=== PATIENT | female | born 1960 | race Caucasian/White ===

== ENCOUNTER → 2016-06-30 | Outpatient (CLI) | payer OTHER ==
[2016-06-30 14:12] LABS: Basophils # (A) 0.1 k/uL (0-0.2); Basophils % (A) 1 %; CH 30.8; CHCM 31.8; Eosinophils # (A) 0.5 k/uL (0-0.7); Eosinophils % (A) 6 %; HCT 43.1 % (34.0-46.0); HDW 2.25; HGB 13.7 gm/dL (11.4-16.0); Luc # (Auto) 0.18; Luc % (Auto) 2; Lymphocytes # (A) 2.5 k/uL (1.0-4.8); Lymphocytes % (A) 33 %; MCHC 31.8 g/dL (31.0-37.0); MCV 97.4 fL (80.0-100.0); Mean Platelet Volume 7.7; Monocytes # (A) 0.4 k/uL (0-1.0); Monocytes % (A) 6 %; Neutrophils % (A) 52 %; RBC 4.42 m/uL (3.80-5.40); RDW 12.8 % (11.5-15.5); WBC 7.7 k/uL (3.8-10.6); WBC (Perox) 7.89
== END | disposition home or self-care (01) ==
LOC: LABPAT 10:34
PROVIDERS: ATTEND Obstetrics & Gynecology
DX: Z01.812 Encounter for preprocedural laboratory examination (principal)
CPT/HCPCS: 85025

== ENCOUNTER 2016-07-05 09:29 | Day surgery (SDC) | payer OTHER ==
[2016-06-30 11:36] VITALS: BMI 28.3
[~2016-07-05 09:29] MED LIST: DEXAMETHASONE SOD PHOSPHATE 10 MG/ML 1 ML VIAL IV ONE; HYDROmorphone 1 MG/ML 1 ML SYRINGE IVP PRN; LACTATED RINGERS 1,000 ML IV SCH; MIDAZOLAM 2 MG/2 ML VIAL IV PRN; ONDANSETRON 4 MG/2 ML VIAL IVP ONE; SCOPOLAMINE 1.5MG/72HR PATCH TRANSDERM ONE; ceFAZolin 2 GM in SODIUM CHLORIDE 0.9% 100 ML IVPB ONE
[2016-07-05 09:55] VITALS: RESP 16
[2016-07-05] MEDS ORDERED: LIDOCAINE 1% 20 ML VIAL (10MG/ML) FOR IV START INTRADERMA ONE (10:09)
[2016-07-05] MEDS ORDERED: PROPOFOL 10 MG/ML 20 ML VIAL IV ONE (10:57)
[2016-07-05] MEDS ORDERED: KETOROLAC 30 MG/ML 1 ML VIAL ONE (10:57)
[2016-07-05] MEDS ORDERED: MIDAZOLAM 2 MG/2 ML VIAL ONE (10:57)
[2016-07-05] MEDS ORDERED: fentaNYL (PF) 50 MCG/ML 2 ML AMP ONE (10:57)
[2016-07-05] MEDS ORDERED: LIDOCAINE 1% INJ 10MG/ML (20 ML MDV) ONE (10:57)
[2016-07-05] MEDS ORDERED: VASOPRESSIN 20 UNIT/ML 1 ML VIAL IM ONE (11:12)
[2016-07-05 11:38] VITALS: TEMP 98.4
--- NOTE | 2016-07-05 11:44 | P.OP ---
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 Postoperative Diagnosis: Pathology pending Procedure(s) Performed: Cold knife conization, endocervical curettage. Anesthesia: GRECIAA Surgeon: Katie Galeana [employer] C[employer] Technician #1: Stated None Estimated Blood Loss (ml): 5 IV fluids (ml): 400 Urine output (ml): 200 Pathology: other (Cervical conization specimen, and endocervical curettings.) Condition: stable Disposition: PACU Description of Procedure: Patient is brought to the operating suite where a general anesthetic is administered without difficulty. She is placed in the dorsal lithotomy position. The appropriate timeout is performed to assure proper patient and procedural identification. Antibiotics are given. Urine hCG is not performed secondary to postmenopausal status greater than 2 years. The cervix, vagina, perineum and periurethral areas are all prepped and draped in usual sterile fashion. Right angle retractor is used in the anterior lip of the cervix is grasped with a double-tooth tenaculum. Bladder is drained for approximately 200 mL of clear yellow urine. Stay sutures are placed in the cervix, 0 Vicryl suture, on the patient's left from 2 to 4:00, tied and held with a hemostat. Then on the patient's right from 8 to 10:00, tied and held laterally with a hemostat. The cervix is injected with 10 mL total of a dilute Pitressin solution to aid in hemostasis. A scalpel is used to incise the cervical body in a circumferential fashion. This is taken down to a depth of approximately 1.5-2 cm. The specimen is sent to pathology for evaluation. An endocervical curettage was then performed, and specimen is sent under separate cover. At this time, electrocautery with a ball attachment is used to thoroughly cauterize the base of the specimen up into the endocervical canal and along the entire surface of the conization. The stay stitches are removed. Monsel solution is placed, hemostasis is excellent. All sponge, needle and instrument counts are correct. Patient is brought back to the recovery room in very good condition with stable vital signs including blood pressure 130/69, pulse 63, 99% O2 saturation. She is given Toradol prior to leaving the operative suite. She will follow-up with me in the office in 2 weeks. She will use [id number] Motrin or Advil products as needed for pain. She is reminded no intercourse, tampons or douching until follow-up.
[2016-07-05 12:51] VITALS: BP 131/86; PULSE 95
== END 2016-07-05 13:09 | disposition home or self-care (01) ==
LOC: OR 09:29
PROVIDERS: ATTEND Obstetrics & Gynecology
DX: R87.613 High grade squamous intraepithelial lesion on cytologic smear of cervix (HGSIL) (principal); R87.612 Low grade squamous intraepithelial lesion on cytologic smear of cervix (LGSIL); F17.200 Nicotine dependence, unspecified, uncomplicated; Z79.899 Other long term (current) drug therapy
CPT/HCPCS: 57520; J2250; J1100; J0690; J2405; J2001; J3010; J1885; J2704; 88305; 88307; 88341; 88342